=== PATIENT | female | born 1965 | race Two or more races ===

== ENCOUNTER 2024-10-10 15:22 | Emergency (ER) | payer MEDICAID, SELFPAY ==
[2024-10-10 15:39] VITALS: BP 156/88; PULSE 95; RESP 18; TEMP 37.1; O2SAT 96; BMI 25.2
--- NOTE | 2024-10-10 15:48 | XR_ITS ---
Examination: Abdomen sonogram, Limited Date and time of exam: October 10, 2024 at 1614 hours INDICATIONS: Epigastric pain beginning 2 days ago Technique: Real-time espitia scale transabdominal sonographic images of the upper abdomen obtained. Findings: Normal gallbladder Normal common bile duct 0.2 cm Pancreatic head 2.4 cm Liver 14.1 cm fatty infiltration Normal hepatopedal portal venous flow Patent IVC IMPRESSION: Normal gallbladder Normal common bile duct Fatty liver
--- NOTE | 2024-10-10 15:49 | EDRME_ITS ---
Rapid Medical Screening Exam [facility] Arrival date/time: 10/10/24 15:22 59-year-old female with no known medical history presents to the emergency room with a chief complaint of constipation, nausea, lower back pain, lower abdominal pain x 3 days. Patient states she was seen at [facility] yesterday and had a full workup with CT scans, x-rays, labs and was discharged with a UTI and pneumonia. Patient states her symptoms have progressively gotten worse. I have greeted and performed a focused initial assessment of this patient. A comprehensive ED assessment and evaluation of the patient, analysis of all test results, and completion of the medical decision making process will be conducted by additional ED providers. Chief Complaint: Abdominal Pain Vital signs: Vital Signs Temperature 98.8 F 10/10/24 15:39 Pulse Rate 95 10/10/24 15:39 Respiratory Rate 18 10/10/24 15:39 Blood Pressure 156/88 H 10/10/24 15:39 Pulse Oximetry (%) 96 10/10/24 15:39 Oxygen Delivery Method Room Air 10/10/24 15:39 Vital signs reviewed by provider: Yes
[2024-10-10 16:07] LABS: Basophils # (Auto) 0.1 Thou/mm3 (0.0-0.2); Basophils % (Auto) 1 % (0-2.5); Eosinophils # (Auto) 0.4 Thou/mm3 (0.0-0.5); Eosinophils % (Auto) 4 % (0-10); Hematocrit 36.9 % (36.0-46.0); Hemoglobin 12.6 g/dL (12.0-16.0); Immature Granulocytes % (Auto) 0 % (0-0); Immature Granulocytes Auto 0.02 Thou/mm3 (0.00-0.00); Lymphocytes # (Auto) 1.6 Thou/mm3 (1.0-4.8); Lymphocytes % (Auto) 19 % (10-50); Mean Corpuscular HGB Conc 34.1 g/dl (31.0-37.0); Mean Corpuscular Hemoglobin 29.5 pg (25.0-35.0); Mean Corpuscular Volume 86 fL (80-100); Monocytes # (Auto) 0.9 Thou/mm3 (0.0-0.8); Monocytes % (Auto) 11 % (0-12); Neutrophils # (Auto) 5.6 Thou/mm3 (1.8-7.7); Neutrophils % (Auto) 65 % (37-80); Nucleated Red Blood Cell % 0 /100 WBC (0); Platelet Count 329 Thou/mm3 (140-440); RDW Standard Deviation 39.9 fL (36.4-46.3); Red Blood Count 4.27 Miln/mm3 (4.00-5.20); White Blood Count 8.6 Thou/mm3 (3.6-11.0)
[2024-10-10 16:29] LABS: Alanine Aminotransferase 12 U/L (10-49); Albumin, Serum 4.7 gm/dL (3.5-5.0); Albumin/Globulin Ratio 1.2 (1.2-2.2); Alkaline Phosphatase 88 U/L (46-116); Anion Gap 7 (7-16); Aspartate Amino Transferase 19 U/L (0-34); BUN/Creatinine Ratio 14 Ratio (12-20); Bilirubin,Total 0.5 mg/dL (0.3-1.2); Blood Urea Nitrogen 10 mg/dL (9-23); Calcium 9.5 mg/dL (8.3-10.6); Calcium (Corrected) 9.5 mg/dL (8.5-10.1); Carbon Dioxide 29.9 mMol/L (20.0-31.0); Chloride 97 mMol/L (98-107); Creatinine (Component) 0.7 mg/dL (0.6-1.3); Estimated Creatinine Clearance 79.2 mL/min (>60); Globulin 3.9 gm/dL (2.3-3.5); Glucose 153 mg/dL (74-106); Lipase 31 U/L (12-53); Osmolality,Calculated 270 (275-295); Potassium 4.6 mMol/L (3.4-5.1); Sodium 134 mMol/L (136-145); Total Protein 8.6 gm/dL (5.7-8.2); eGFR > 60 See Note
[2024-10-10 16:50] LABS: Collection Type, Urine Clean Catch
[2024-10-10 17:00] LABS: Bilirubin,Urine Negative (Negative); Blood,Urine 2+ (Negative); Clarity,Urine Turbid (Clear/Hazy); Color,Urine Yellow (Lt Yel-Yel); Glucose, Urine Negative (Negative); Ketones,Urine 1+ (Negative); Leukocyte Esterase,Urine Positive (Negative); Nitrite,Urine Negative (Negative); PH,Urine 6.5 (5.0-7.0); Protein,Urine 2+ (Neg - Trace); RBC,Urine 53 /hpf (0-3); Specific Gravity,Urine 1.019 (1.001-1.035); Squamous Epithelial Cell,Urine 3 /hpf (0-5); Urobilinogen,Urine Negative mg/dL (0.0-1.0); WBC,Urine 15 /hpf (0-5)
[2024-10-10 17:07] LABS: HCG Qualitative,Urine Negative
--- NOTE | 2024-10-10 18:41 | PD.EDABDPN ---
ED Abdominal Pain RME/HPI General Chief Complaint: Abdominal Pain Stated complaint: FEVER, LOWER ABD/BACK PAIN, NAUSEA, CONSTIPATION Time seen by provider: 10/10/24 18:23 Arrival date/time: 10/10/24 15:22 59-year-old female with past medical history of diabetes returns emergency department complaining of constipation, nausea, low back pain that radiates to her abdomen that is been ongoing for 3 days. Patient reports was seen at [facility] emergency room on Thursday and had CT scans labs and urinalysis and was discharged with diagnosis of UTI and pulmonary nodules that she has to follow-up with her primary care provider for. Patient reports she is currently taking antibiotics for urinary tract infection. Source: patient Mode of arrival: ambulatory Limitations: no limitations RME / HPI RME / HPI narrative: 10/10/24 15:22 59-year-old female with no known medical history presents to the emergency room with a chief complaint of constipation, nausea, lower back pain, lower abdominal pain x 3 days. Patient states she was seen at [facility] yesterday and had a full workup with CT scans, x-rays, labs and was discharged with a UTI and pneumonia. Patient states her symptoms have progressively gotten worse. I have greeted and performed a focused initial assessment of this patient. A comprehensive ED assessment and evaluation of the patient, analysis of all test results, and completion of the medical decision making process will be conducted by additional ED providers. Related Data Previous Rx's ?Medication ?Instructions ?Recorded acetaminophen 500 mg capsule 500 mg PO Q6H PRN pain #30 caps 10/10/24 ibuprofen 600 mg tablet 600 mg PO Q8H PRN pain #20 tabs 10/10/24 Allergies Allergy/AdvReac Type Severity Reaction Status Date / Time No Known Allergies Allergy Verified 10/10/24 15:29 Review of Systems Review of Systems Systems Reviewed: All systems reviewed, normal except as documented Constitutional Constitutional: Reports system reviewed and no additional complaints, except as documented, Denies body ache(s), Denies chills and Denies fever(s) Eyes Eyes: Reports system reviewed and no additional complaints, except as documented and Denies change in vision ENT Ears, Nose, Mouth, and Throat: Reports system reviewed and no additional complaints, except as documented, Denies disequilibrium, Denies dizziness, Denies sore throat and Denies vertigo Cardiovascular Cardiovascular: Reports system reviewed and no additional complaints, except as documented, Denies chest pain and Denies dyspnea Respiratory Respiratory: Reports system reviewed and no additional complaints, except as documented, Denies chest congestion, Denies cough and Denies dyspnea Gastrointestinal Gastrointestinal: Reports system reviewed and no additional complaints, except as documented, Denies abdominal pain, Reports constipation, Reports nausea and Denies vomiting Musculoskeletal Musculoskeletal: Reports system reviewed and no additional complaints, except as documented, Denies abnormal gait, Denies arthralgias and Reports back pain Integumentary/Breasts Skin/Breast: Reports system reviewed and no additional complaints, except as documented, Denies erythema, Denies rash and Denies wounds Neurologic Neurologic: Reports system reviewed and no additional complaints, except as documented, Denies abnormal gait, Denies disequilibrium, Denies dizziness and Denies vertigo Past Medical History Social History SMOKING STATUS: Never smoker ED Exam General Limitations: Present no limitations General appearance: Present alert and in no apparent distress Head Head exam: Present atraumatic Eye Eye exam: Present normal appearance, PERRL and EOMI ENT ENT exam: Present normal exam, normal oropharynx and mucous membranes moist Neck Neck exam: Present normal inspection, full ROM and trachea midline Chest Chest inspection: Present normal inspection and symmetric chest wall rise Respiratory Respiratory exam: Present normal lung sounds bilaterally Cardiovascular Cardiovascular exam: Present regular rate, normal rhythm and normal heart sounds Abdominal Exam Abdominal exam: Present soft and normal bowel sounds; Absent tenderness or rebound Extremities Exam Extremities exam: Present normal inspection and full ROM Back Exam Back exam: Present normal inspection and full ROM Neurological Exam Neurological exam: Present alert, oriented X3 and CN II-XII intact Psychiatric Psychiatric exam: Present normal affect and normal mood Skin Skin exam: Present warm, dry, intact and normal color Course Quality Measures none Orders Category Date Time Status US gall bladder Stat Exams 10/10/24 15:48 Completed CBC Stat Lab 10/10/24 15:53 Completed CMP [Comprehensive Metabolic Panel] Stat Lab 10/10/24 15:53 Completed HCG Qualitative,Urine Stat Lab 10/10/24 16:26 Completed Lipase Stat Lab 10/10/24 15:53 Completed UA [Urinalysis] Stat Lab 10/10/24 16:26 Completed Urine Culture Stat Lab 10/10/24 16:26 Received Vital Signs Vital signs: Vital Signs Temperature 98.8 F 10/10/24 15:39 Pulse Rate 95 10/10/24 15:39 Respiratory Rate 18 10/10/24 15:39 Blood Pressure 156/88 H 10/10/24 15:39 Pulse Oximetry (%) 96 10/10/24 15:39 Oxygen Delivery Method Room Air 10/10/24 15:39 96% room air within normal limits Abdominal Pain MDM MDM Narrative MDM Narrative:: 59-year-old female with past medical history of diabetes returns emergency department complaining of constipation, nausea, low back pain that radiates to her abdomen that is been ongoing for 3 days. Patient reports was seen at [facility] emergency room on Thursday and had CT scans labs and urinalysis and was discharged with diagnosis of UTI and pulmonary nodules that she has to follow-up with her primary care provider for. Patient reports she is currently taking antibiotics for urinary tract infection. CBC was unremarkable for any leukocytosis or anemia. CMP was unremarkable for any elevated LFTs or gross electrolyte abnormalities. Ultrasound gallbladder unremarkable. Urinalysis consistent with UTI and patient is already on antibiotics. Patient appears nontoxic and is hemodynamically stable. Patient data External records reviewed:: None Clinical information provided by:: patient Social determinants that could affect healthcare access:: none Patient has the following chronic illnesses:: See chart How is presenting disease/condition affected by chronic disease/condition?: uneffected by Evaluation data The following diagnostics were reviewed and interpreted by me:: lab results and radiology exam(s) Lab and/or radiology exams considered but not ordered:: Ordered Interpretation Summary: Interpreted by me Medications / Prescriptions Medications or Prescriptions considered but not ordered:: N/A Medication administrations:: N/A Consultations Consultation(s) initiated? (list below): No Diagnosis Differential diagnosis abdominal pain: abdominal pain, acute appendicitis, calculus of kidney, constipation, diverticulitis, endometriosis, gastroenteritis, pancreatitis and small bowel obstruction Most likely diagnosis given after review of the tests above:: UTI Admission Indicated Admission indicated?: not indicated Admission Request Was there a request for admission?: No Disposition Plan Disposition Plan: Discharge Discharge Attestation Discharge Attestation: The patient and all family members were given an opportunity to ask questions and understood the discharge instructions. Discharge instructions specifically effects, indications for sooner follow up or return to the emergency department, and the expected course of current diagnosis. Patient condition: Stable Discharge Plan Plan Patient Disposition: HOME (Self Care) Disposition Comment: Stable Prescriptions/Referrals Prescriptions/Med Rec: New ibuprofen 600 mg tablet 600 mg PO Q8H PRN (Reason: pain) Qty: 20 0RF acetaminophen 500 mg capsule 500 mg PO Q6H PRN (Reason: pain) Qty: 30 0RF Referrals: Cleopatra Wilkins PA-C [Primary Care Provider] - In 1 week Problem List Clinical Impression: UTI (urinary tract infection) Patient/Caregiver Discharge Instructions Discharge Activity: activity as tolerated Education Materials: ED CYSTITIS Female Adult Additional Instructions: Continue taking antibiotics that were prescribed by [facility] emergency room until they are completed. Drink plenty of fluids and stay hydrated. Follow-up with primary care provider in 2 to 3 days. Return to emergency department for any worsening symptoms or as needed. Print Language: [place] Zeal[place] Stand Alone Forms: [facility] Award Info., Patient Portal Info Letter PA/NIC Supervising Physician PA/NIC Supervising Physician: Dr. Holley
== END 2024-10-10 18:49 | disposition home or self-care (01) ==
PROVIDERS: Nurse Practitioner Family; Emergency Provider Emergency Medicine; PCP Physician Assistant Medical
DX: N39.0 Urinary tract infection, site not specified (principal); R10.13 Epigastric pain
CPT/HCPCS: 36415; 76705; 80053; 81001; 81025; 83690; 85025; 87086; 99284